=== PATIENT | female | born 1980 | race Two or more races ===

== ENCOUNTER 2019-02-13 20:16 | Emergency (ER) | payer OTHER ==
[~2019-02-13] VITALS: Ht 167.6 cm; Wt 107.0 kg
[2019-02-13 20:26] VITALS: Ht 167.6 cm; Wt 107.0 kg
[2019-02-13 22:33] VITALS: BP 145/87
== END 2019-02-13 22:33 | disposition home or self-care (01) ==
LOC: ED 20:16
DX: G43.909 Migraine, unspecified, not intractable, without status migrainosus (principal); R11.0 Nausea; E11.9 Type 2 diabetes mellitus without complications; Z88.2 Allergy status to sulfonamides
CPT/HCPCS: J1200; J1885; J2270; J2405; J2765; J7030